=== PATIENT | female | born 1955 | race Caucasian/White ===

== ENCOUNTER 2017-05-07 16:50 | Emergency (ER) | payer SELFPAY ==
[2017-05-07 18:57] VITALS: BP 142/92; PULSE 95; RESP 20; TEMP 36.8; O2SAT 100; BMI 25.7
--- NOTE | 2017-05-07 19:22 | HMH.EDUTC ---
[facility] [place]: Herpes zoster Qualifiers: Herpes zoster complications: without complications Qualified Code(s): B02.9 - Zoster without complications Disposition: Home, Self-Care Condition on Discharge: Good Instructions: DI for Shingles Additional Instructions: * Read attached education * Be sure to avoid those that we discussed. Do not share clothes or towels with anyone. * [place] soaks. Astringent you can add to your bath water. Ask for it at pharmacy. No prescription needed. * Ibuprofen as needed for pain * Benadryl as needd for itch/pain * Start antiviral MAURICE. The cheapest way without insurance is what I prescribed but unfortunately you have to take it more often. * follow up for new, worsening or persistent symptoms. We have provided you with a list of providers accepting patients. I would encourage you find a new primary care provider and make an appt MAURICE as it can take weeks to get a new patient appointment. In the meantime, follow up in the clinic or ER for new, worsening or persistent symptoms. Prescriptions: Acyclovir 800 mg PO 5XDAY #35 tab Referrals: Provider,Referral, MD [Primary Care Provider] - (For any new, worsening or persistant symptoms) Time of Disposition: 19:40 Medical Decision Making Vital Signs: 05/07/17 18:57 Temperature 98.3 F Temperature Source Temporal Artery Scan Pulse Rate [Radial] 95 H Respiratory Rate 20 Blood Pressure [Right Arm] 142/92 Blood Pressure Mean [Right Arm] 108 Blood Pressure Source [Right Arm] Automatic Cuff Blood Pressure Position [Right Arm] Sitting 02 Sat by Pulse Oximetry 100 Oxygen Delivery Method Room Air - [place] Inquiry Pt receiving controlled substance: No [facility] [place] General Stated complaint: Swelling and rash on vagina poss spider bite Time Seen by Provider: 05/07/17 19:22 Mode of Arrival: Ambulatory Source of Information: Patient Limitations: No Limitations Description of Symptoms (Recalled from Triage Doc. by RN): PT STATES SHE WAS CLEANING IN HER ATTIC AND GOT CAUGHT IN A SPIDER WEB. PT HAS A RASH THAT DEVELOPED ON HER VAGINA. PT STATES SHE THINKS ITS A SPIDER BITE. HEENT Symptoms (Recalled from RN notes): No Resp Symptoms (Recalled from RN notes): No Skin Symptoms (Recalled from RN notes): Yes (RASH OR SPIDER BITE) MS Symptoms (Recalled from RN notes): No Functional Status (Recalled from RN notes): NA - History of Present Illness Provider Complaint: c/o rash to right labia. First noticed Friday but has gotten worse. First felt more irritating then despite benadryl and peroxide, bumpy and more . Having a hard time describing how it feels. Maybe itchy, maybe pinpoint pain. My right thigh which has no rash feels weird. Like that weird way your skin feels when you have the flu. Not sure about new contacts. Moved into new home 1.5 weeks ago. filthy and trying to clean. While using leaf blower in basement, blew a nest of spiders. Reports having spiders all over her. Bite on chest and left neck resolved with benadryl so wonders if one somehow got to her vagina. Also reports spraying bodyspray last week and remembers stingly on vagina. Maybe it is an allergic reaction . Pt not sexually active and hasn't been for 4 years since spouse . - Related Data Previous Rx's Medication Instructions Recorded Acyclovir 800 mg PO 5XDAY #35 tab 05/07/17 Allergies Allergy/AdvReac Type Severity Reaction Status Date / Time codeine Allergy Verified 05/07/17 18:00 - Worker's Comp Is this a Worker's Comp case?: No [facility] History I have reviewed the patient's past medical history: Yes Medical History: Denies:: Diabetes Mellitus Type 1, Diabetes Mellitus Type 2, Hypertension Other Surgeries: Yes: Other (hysterectomy, cholecystectomy) - Social History Smoking Status: Never smoker Alcohol Intake: never - Psychiatric History Expresses thoughts of harming self/others: None Suicide Plan Description: No Plan ROS Obtained:
--- NOTE | 2017-05-07 19:35 | ED_ITS ---
[facility] – [place] Disposition Clinical Impression: Herpes zoster Qualifiers: Herpes zoster complications: without complications Qualified Code(s): B02.9 - Zoster without complications Disposition: Home, Self-Care Condition on Discharge: Good Instructions: DI for Shingles Additional Instructions: * Read attached education * Be sure to avoid those that we discussed. Do not share clothes or towels with anyone. * [place] soaks. Astringent you can add to your bath water. Ask for it at pharmacy. No prescription needed. * Ibuprofen as needed for pain * Benadryl as needd for itch/pain * Start antiviral MAURICE. The cheapest way without insurance is what I prescribed but unfortunately you have to take it more often. * follow up for new, worsening or persistent symptoms. We have provided you with a list of providers accepting patients. I would encourage you find a new primary care provider and make an appt MAURICE as it can take weeks to get a new patient appointment. In the meantime, follow up in the clinic or ER for new, worsening or persistent symptoms. Prescriptions: Acyclovir 800 mg PO 5XDAY #35 tab Referrals: Provider,Referral, MD [Primary Care Provider] - (For any new, worsening or persistant symptoms) Time of Disposition: 19:40 Medical Decision Making Vital Signs: 05/07/17 18:57 Temperature 98.3 F Temperature Source Temporal Artery Scan Pulse Rate [Radial] 95 H Respiratory Rate 20 Blood Pressure [Right Arm] 142/92 Blood Pressure Mean [Right Arm] 108 Blood Pressure Source [Right Arm] Automatic Cuff Blood Pressure Position [Right Arm] Sitting 02 Sat by Pulse Oximetry 100 Oxygen Delivery Method Room Air - [place] Inquiry Pt receiving controlled substance: No [facility] [place] HPI - General Stated complaint: Swelling and rash on vagina poss spider bite Time Seen by Provider: 05/07/17 19:22 Mode of Arrival: Ambulatory Source of Information: Patient Limitations: No Limitations Description of Symptoms (Recalled from Triage Doc. by RN): PT STATES SHE WAS CLEANING IN HER ATTIC AND GOT CAUGHT IN A SPIDER WEB. PT HAS A RASH THAT DEVELOPED ON HER VAGINA. PT STATES SHE THINKS ITS A SPIDER BITE. HEENT Symptoms (Recalled from RN notes): No Resp Symptoms (Recalled from RN notes): No Skin Symptoms (Recalled from RN notes): Yes (RASH OR SPIDER BITE) MS Symptoms (Recalled from RN notes): No Functional Status (Recalled from RN notes): NA - History of Present Illness Provider Complaint: c/o rash to right labia. First noticed Friday but has gotten worse. First felt more irritating then despite benadryl and peroxide, bumpy and more . Having a hard time describing how it feels. Maybe itchy, maybe pinpoint pain. My right thigh which has no rash feels weird. Like that weird way your skin feels when you have the flu. Not sure about new contacts. Moved into new home 1.5 weeks ago. filthy and trying to clean. While using leaf blower in basement, blew a nest of spiders. Reports having spiders all over her. Bite on chest and left neck resolved with benadryl so wonders if one somehow got to her vagina. Also reports spraying bodyspray last week and remembers stingly on vagina. Maybe it is an allergic reaction . Pt not sexually active and hasn't been for 4 years since spouse . - Related Data Previous Rx's Medication Instructions Recorded Acyclovir 800 mg PO 5XDAY #35 tab 05/07/17 Allergies Allergy/AdvReac Type Severity Reaction Status Date / Time ace [place]
[2017-05-07 19:45] VITALS: BP 140/82; PULSE 90; RESP 20; TEMP 37; O2SAT 100
== END 2017-05-07 19:45 | disposition home or self-care (01) ==
PROVIDERS: Emergency Provider Nurse Practitioner Family
DX: B02.9 Zoster without complications (principal)
CPT/HCPCS: 99202

== ENCOUNTER → 2018-08-25 08:21 | Outpatient (POV) | payer SELFPAY | PROVIDERS: Visit Provider Dermatology | DX: Z00.00 Encounter for general adult medical examination without abnormal findings (principal) ==

== ENCOUNTER → 2018-09-15 14:55 | Outpatient (POV) | payer SELFPAY | PROVIDERS: Visit Provider Dermatology | DX: Z00.00 Encounter for general adult medical examination without abnormal findings (principal) ==

== ENCOUNTER → 2019-03-30 13:45 | Outpatient (POV) | payer SELFPAY | PROVIDERS: Visit Provider Dermatology | DX: Z00.00 Encounter for general adult medical examination without abnormal findings (principal) ==

== ENCOUNTER → 2019-11-16 14:00 | Outpatient (POV) | payer SELFPAY | PROVIDERS: Visit Provider Dermatology | DX: Z00.00 Encounter for general adult medical examination without abnormal findings (principal) ==

== ENCOUNTER → 2020-05-30 14:11 | Outpatient (POV) | payer SELFPAY | PROVIDERS: Visit Provider Dermatology | DX: Z00.00 Encounter for general adult medical examination without abnormal findings (principal) ==

== ENCOUNTER → 2021-03-27 14:11 | Outpatient (POV) | payer SELFPAY | PROVIDERS: Visit Provider Dermatology | DX: Z00.00 Encounter for general adult medical examination without abnormal findings (principal) ==

== ENCOUNTER → 2022-01-08 14:07 | Outpatient (POV) | payer SELFPAY | PROVIDERS: Visit Provider Dermatology | DX: Z00.00 Encounter for general adult medical examination without abnormal findings (principal) ==

== ENCOUNTER → 2022-03-05 14:04 | Outpatient (POV) | payer SELFPAY | PROVIDERS: Visit Provider Dermatology | DX: Z00.00 Encounter for general adult medical examination without abnormal findings (principal) ==

== ENCOUNTER → 2022-11-19 14:23 | Outpatient (POV) | payer SELFPAY | PROVIDERS: Visit Provider Dermatology | DX: Z00.00 Encounter for general adult medical examination without abnormal findings (principal) ==

== ENCOUNTER → 2023-02-25 08:52 | Outpatient (POV) | payer SELFPAY | PROVIDERS: Visit Provider Dermatology | DX: Z00.00 Encounter for general adult medical examination without abnormal findings (principal) ==